=== PATIENT | female | born 1985 | race Caucasian/White ===

== ENCOUNTER 2017-10-05 20:32 | Emergency (ER) | END 2017-10-06 01:05 | disposition home or self-care (01) ==

== ENCOUNTER 2017-10-28 10:11 | Day surgery (SDC) | END 2017-10-28 12:06 | disposition home or self-care (01) ==

== ENCOUNTER 2018-07-15 16:21 | Emergency (ER) | payer OTHER ==
[~2018-07-15] VITALS: Ht 170.2 cm; Wt 60.0 kg
[2018-07-15 16:25] VITALS: Ht 170.2 cm; Wt 60.0 kg
[2018-07-15] MEDS ORDERED: FLUCONAZOLE 150 MG TAB PO STA (17:27)
[2018-07-15] MEDS ORDERED: CEFTRIAXONE 250 MG INJ IM ONE (17:30)
[2018-07-15] MEDS ORDERED: AZITHROMYCIN 500 MG TAB PO ONE (17:30)
[2018-07-15] MEDS ORDERED: METR500T PO (17:32)
--- NOTE | 2018-07-15 17:39 | ERD ---
ER Documentation Chief Complaint Chief Complaint PAINFUL URINATION , ITCHING /SWELLING ON GENETAL AREA X 2 DAYS HPI 33-year-old female with no reported past medical history who presents with complaint of painful urination, itching over the past 2 days. Patient is noticed yellowish vaginal discharge but no vaginal bleeding. Last day of LMP was yesterday. Reports she is sexually active with one partner, no reported condom use. She otherwise denies genital ulcerations, fevers, chills, abdominal or pelvic pain, nausea, vomiting, diarrhea. Does have history of UTI in the distant past. She otherwise without complaint. ROS All systems reviewed and are negative except as per history of present illness. Medications Home Meds Active Scripts Cephalexin* (Keflex*) 500 Mg Capsule, 500 MG PO BID for 7 Days, CAP Prov:JEUDINE,GETHO PA-C 07/15/18 Metronidazole* (Flagyl*) 500 Mg Tablet, 500 MG PO BID for 7 Days, TAB Prov:JEUDINE,GETHO PA-C 07/15/18 Reported Medications [None] No Conflict Check 10/28/17 Allergies Allergies: Coded Allergies: No Known Allergy (Verified , 09/24/06) PMhx/Soc Medical and Surgical Hx: pt denies Medical Hx History of Surgery: Yes (RHINOPLASTY) Anesthesia Reaction: No Hx Neurological Disorder: No Hx Respiratory Disorders: No Hx Cardiac Disorders: No Hx Psychiatric Problems: No Hx Miscellaneous Medical Probl: No Hx Alcohol Use: No Hx Substance Use: No Hx Tobacco Use: No Smoking Status: Never smoker Physical Exam Vitals Vital Signs Date Temp Pulse Resp B/P (MAP) Pulse Ox O2 O2 Flow FiO2 Time Delivery Rate 07/15/18 98.3 77 18 102/70 100 Room Air 18:09 (81) 07/15/18 98.0 71 16 97/69 (78) 99 16:25 Physical Exam I have reviewed the triage vital signs. Const: Well nourished, well developed, appears stated age Eyes: PERRL, no conjunctival injection HENT: NCAT, Neck supple without meningismus CV: RRR, Warm, well-perfused extremities RESP: CTAB, Unlabored respiratory effort GI: soft, non-tender, non-distended, no masses : Pelvic exam deferred MSK: No gross deformities appreciated Skin: Warm, dry. No rashes Neuro: grossly non focal Psych: Appropriate mood and affect. Results 24 hrs Laboratory Tests Test 07/15/18 17:44 07/15/18 17:48 Urine Color ANN-MARIE Urine Clarity CLEAR Urine pH 6.0 Urine Specific [place] 1.019 Urine Ketones NEGATIVE mg/dL Urine Nitrite POSITIVE mg/dL Urine Bilirubin NEGATIVE mg/dL Urine Urobilinogen 2+ mg/dL Urine Leukocyte Esterase TRACE Subhash/ul Urine Microscopic RBC 1 /HPF Urine Microscopic WBC 2 /HPF Urine Squamous Epithelial Cells FEW /HPF Urine Bacteria FEW /HPF Urine Mucus MODERATE /HPF Urine Hemoglobin 1+ mg/dL Urine Glucose NEGATIVE mg/dL Urine Total Protein NEGATIVE mg/dl POC Beta HCG, Qualitative NEGATIVE Current Medications Medications Dose Sig/Ceci Start Time Status Last (Trade) Ordered Route PRN Stop Time Admin Dose Reason Admin Ceftriaxone 250 mg ONCE ONCE 07/15/18 DC 07/15/18 Sodium IM 17:30 07/15/18 17:37 (Rocephin) 17:32 1,000 mg ONCE ONCE 07/15/18 DC 07/15/18 Azithromycin PO 17:30 07/15/18 17:37 (Zithromax) 17:32 Fluconazole 150 mg ONCE STAT 07/15/18 DC 07/15/18 (Diflucan) PO 17:27 07/15/18 17:44 17:32 Procedures/MDM 33-year-old female who presents with urinary symptoms. Reported sexual activity without use of condom. Patient concern for STI type infection. Patient electing to proceed with full treatment. Pelvic exam deferred. I have low tonie picion for intra-abdominal or pelvic process and warranting further emergent care, imaging or treatment. ED medications: Ceftriaxone 250 IM, azithromycin 1000 mg, Rx for Flagyl 7-day course, Keflex for UTI noted on UA DISPOSITION PLAN: We discussed follow up with the patient's primary care doctor within 24 to 48 hours. Patient counseled regarding my diagnostic impression and care plan. Prior to discharge all questions answered. Pt agrees with treatment plan and understands strict return precautions. Precautionary instructions provided including instructions to return to the ER if not improving or for any worsening or changing symptoms or concerns. Disclaimer: Inadvertent spelling and grammatical errors are likely due to EHR/dictation software use and do not reflect on the overall quality of patient care. Also, please note that the electronic time recorded on this note does not necessarily reflect the actual time of the patient encounter. Departure Diagnosis: Primary Impression: Female genital symptoms Condition: Stable Patient Instructions: Teens: STD Symptoms in Women, Cervicitis (Std), Treated Additional Instructions: Call your primary care doctor TOMORROW for an appointment during the next 2-3 days.See the doctor sooner or return here if your condition worsens before your appointment time. ABI [place] PA-C Jul 15, 2018 17:39
[2018-07-15] MEDS ORDERED: CEPH-443 PO (17:59)
[2018-07-15 18:09] VITALS: BP 102/70; PULSE 77; RESP 18
== END 2018-07-15 18:14 | disposition home or self-care (01) ==
LOC: FTE 16:21
DX: N89.8 Other specified noninflammatory disorders of vagina (principal)
CPT/HCPCS: 81001; 81025; 96372; J0696; Z7502; Z7610